=== PATIENT | male | born 1965 | race Caucasian/White ===

== ENCOUNTER 2017-03-21 04:16 | Inpatient (IN) ==
[2017-03-16 13:21] LABS: MANUAL DIFF NEEDED? NO; URINE MICRO REVIEW NEEDED? NO; URINE SOURCE CLEAN CATCH
[2017-03-16 13:25] LABS: BILIRUBIN URINE NEGATIVE (NEGATIVE); BLOOD URINE NEGATIVE (NEGATIVE); COLOR YELLOW; GLUCOSE URINE NEGATIVE (NEGATIVE); LEUKOCYTES URINE NEGATIVE (NEGATIVE); NITRITE URINE NEGATIVE (NEGATIVE); PH URINE 7.5; PROTEIN URINE 70 mg/dL (NEGATIVE); TURBIDITY URINE CLEAR (CLEAR); UR EPITHELIAL CELLS <10 /HPF (<10); URINE BACTERIA NEGATIVE /HPF; URINE RBC <10 /HPF (<10); URINE WBC <10 /HPF (<10); UROBILINOGEN URINE NORMAL (NORMAL)
[2017-03-16 13:26] LABS: BASO% 0.3 % (0.0-0.8); EOS# 0.14 X1000 (0.0-0.7); EOS% 1.5 % (0.0-10.0); HEMATOCRIT 48.6 % (42.0-52.0); HEMOGLOBIN 15.7 g/dL (14.0-18.0); IMM GRAN# 0.02 X1000 (0.0-0.04); IMM GRAN% 0.2 % (0.0-0.5); LYMPH# 2.44 X1000 (1.2-3.4); LYMPH% 26.2 % (20.5-51.1); MCH 24.8 PG (27-31); MCHC 32.3 g/dL (33-37); MCV 76.7 FL (81-99); MONO# 1.05 X1000 (0.11-0.59); MONO% 11.3 % (1.7-9.3); MPV 9.9 FL (7.4-10.4); NEUT% 60.5 % (42.2-75.2); PLT 247 X1000 (130-400); RBC 6.34 XMIL (4.7-6.1)
[2017-03-16 13:34] LABS: INR 0.99; PROTIME 10.4 Seconds (9.2-11.7)
--- NOTE | 2017-03-16 13:56 | EKG Report ---
Test Performed on : 03/16/2017 1:12:29 PM Test Reason : PAT Blood Pressure : / mmHG Vent. Rate : 067 BPM Atrial Rate : 067 BPM P-R Int : 174 ms QRS Dur : 078 ms QT Int : 386 ms P-R-T Axes : 034 -01 051 degrees QTc Int : 407 ms Normal sinus rhythm. Minimal voltage criteria for LVH, may be normal variant Nonspecific T wave abnormality Abnormal ECG When compared with ECG of 01-JAN-2015 09:16, No significant change was found Confirmed by Kentrell LAWRENCE, Manuel Ibrahim ([id number]) on 03/16/2017 9:07:48 PM
[2017-03-16 13:58] LABS: AGAP 10; BUN 14 mg/dL (8-22); CALCIUM 9.4 mg/dL (8.8-10.2); CHLORIDE 97 mmol/L (98-107); COSMO 273; POTASSIUM 4.6 mmol/L (3.5-5.1); SODIUM 137 mmol/L (136-145); TCO2 30 mmol/L (25-35)
[2017-03-21] MEDS ORDERED: ZYLOPRIM PO PRN (06:53)
[2017-03-21] MEDS ORDERED: MORPHINE IV PRN (06:54)
[2017-03-21] MEDS ORDERED: TESTOSTERONE CYPIONATE 100 MG IM SCH (07:00)
[2017-03-21] MEDS ORDERED: COLACE ONE (07:37)
[2017-03-21] MEDS ORDERED: REGLAN ONE (07:37)
[2017-03-21] MEDS ORDERED: PEPCID ONE (07:37)
[2017-03-21] MEDS ORDERED: CELEBREX ONE (07:38)
[2017-03-21] MEDS ORDERED: LYRICA ONE (07:38)
[2017-03-21] MEDS ORDERED: KEFZOL 2 GM/D5W 2 GM/50 ML IVPB ONE (07:38)
[2017-03-21] MEDS ORDERED: LR 1,000 ML ONE ×2 (07:38→12:32)
[2017-03-21] MEDS: COLACE PO SCH ×2 (08:19→21:38)
[2017-03-21] MEDS: CELEBREX PO SCH ×2 (08:19→08:20)
[2017-03-21] MEDS ORDERED: TORADOL ONE (08:21)
[2017-03-21] MEDS ORDERED: CYKLOKAPRON 1,000 MG/NS 1,000 MG/100 ML IVPB ONE ×2 (08:22→08:24)
[2017-03-21] MEDS ORDERED: VANCOMYCIN ONE (08:22)
[2017-03-21] MEDS ORDERED: MARCAINE 0.25% PF/EPI 1:200,000 ONE (08:22)
[2017-03-21] MEDS ORDERED: SODIUM CHLORIDE 0.9% ONE (08:22)
[2017-03-21] MEDS ORDERED: EXPAREL 1.3% ONE (08:23)
[2017-03-21] MEDS ORDERED: NEOSPORIN G.U. IRRIGANT ONE (08:23)
[2017-03-21 10:00] LABS: URINE MICRO REVIEW NEEDED? NO; URINE SOURCE CATH
[2017-03-21 10:06] LABS: UR EPITHELIAL CELLS <10 /HPF (<10); URINE BACTERIA NEGATIVE /HPF; URINE RBC <10 /HPF (<10); URINE WBC <10 /HPF (<10)
[2017-03-21 10:07] LABS: BILIRUBIN URINE NEGATIVE (NEGATIVE); BLOOD URINE NEGATIVE (NEGATIVE); COLOR YELLOW; GLUCOSE URINE NEGATIVE (NEGATIVE); LEUKOCYTES URINE NEGATIVE (NEGATIVE); NITRITE URINE NEGATIVE (NEGATIVE); PH URINE 7.5; PROTEIN URINE 30 mg/dL (NEGATIVE); SP GRAVITY URINE 1.019; TURBIDITY URINE CLEAR (CLEAR); UROBILINOGEN URINE NORMAL (NORMAL)
[2017-03-21] MEDS ORDERED: FENTANYL ONE (12:01)
[2017-03-21] MEDS ORDERED: VERSED ONE (12:02)
[2017-03-21] MEDS ORDERED: DIPRIVAN 1% ONE (12:02)
--- NOTE | 2017-03-21 12:27 | OPERATIVE NOTE ---
PROCEDURE DATE: 03/21/2017 PREOPERATIVE DIAGNOSIS: Unstable right total knee. POSTOPERATIVE DIAGNOSIS: Right total knee with polyethylene failure. OPERATION: Revision of right total knee, both femoral and tibial components. SURGEONS: Dr. Link Bhardwaj MD. REGISTERED ROUTE ASSOCIATE: MARGARITA Eddy. ANESTHESIA: Spinal. COMPLICATION: None. PROCEDURE IN DETAIL: This 52-year-old male presents for revision arthroplasty of the right knee. Risks, benefits, and no guarantees were discussed, and he is willing to proceed. He was taken the operating room and satisfactory anesthesia obtained. The right leg was prepped and draped in usual sterile fashion. A time-out was taken to confirm operative site, procedure, and patient. The leg was wrapped with an Esmarch and tourniquet inflated to 350 mmHg. The previous incision was utilized, and extended proximally and distally. A medial parapatellar incision was made. Upon opening the joint, clear fluid was noted and this was cultured for aerobic and anaerobic cultures, but did not appear to be infected. Gram stain showed no organisms. The joint was irrigated and the polyethylene post from the previous knee replacement was noted be fractured, with a loose piece of polyethylene floating about the knee. With a rongeur and osteotome, the polyethylene was removed from the tibial tray. Osteotome was then used to carefully dissect around the femoral component and the femoral component was extracted. Any remaining cement on the femur was carefully picked off with a rongeur. Afterwards, the tibial tray was removed with similar technique with an osteotome, with care taken to preserve bone and then removal of any retained cement. Using the [employer] Sigma revision system, an intramedullary reamer was used to ream the tibia up to an appropriate size tibial stem, which was 12 mm in diameter. Afterwards, the tibial metaphysis was broached using the revision system with a 45 metaphyseal sleeve. The tibial cut was then re-cut down to fresh bone with a flat cut. Care was taken to preserve collateral ligaments and posterior neurovascular structures. Tibial tray was sized to a size 3 tibial tray. Next, the femur was re-cut at 5 degrees of valgus and sized to a TC3 Sigma size 4 femoral component. The 4-in-1 block was secured and the anterior, posterior, and chamfer cuts sequentially made to fresh bone with 4 mm offset posteriorly. The notch was created for posterior stabilized design. The femur was reamed and broached up to a size 31 femoral sleeve with a 16 mm stem. Trial implants were assembled and placed, and a 12.5 poly revealed good range of motion and stability. Any fibrous tissue was removed about the patella, and the patella component from the previous knee replacement was well cemented, without any wear. This was left in place. Trial implants removed and bony surfaces thoroughly irrigated with pulsatile lavage. A PFC Sigma revision knee was then placed into the knee with the stem prosthesis on both femoral and tibial sides, and excess cement removed with a [place] elevator. After full cure, a 12.5 rotating platform posterior stabilized poly was placed in the tibial tray and the knee reduced. Final range of motion was zero to 120 degrees with midline patellar tracking. The arthrotomy was then copiously irrigated with irrigant. The joint capsule was injected with Exparel and a Hemovac drain placed. The arthrotomy was closed with #1 Vicryl, the subcutaneous with 2-0 Vicryl, and the skin with skin ravinder. Sterile dressings completed the closure, and the patient was recovered from anesthesia and transferred to the recovery room in stable condition. No intraoperative complications were noted. Instrument count and sponge count were correct at the time of closure. cc: Tom Bhardwaj MD
[2017-03-21] MEDS ORDERED: NS 1,000 ML ONE (12:31)
[2017-03-21] MEDS ORDERED: OFIRMEV 1000 MG/ISOTONIC SOLN 1,000 MG/100 ML BOTTLE ONE (12:32)
[2017-03-21] MEDS ORDERED: EPHEDRINE ONE (12:32)
[2017-03-21] MEDS ORDERED: ZOFRAN ONE (12:32)
[2017-03-21] MEDS ORDERED: XYLOCAINE-MPF 2% ONE (12:32)
[2017-03-21] MEDS ORDERED: NEO-SYNEPHRINE ONE (12:32)
[2017-03-21] MEDS ORDERED: SODIUM CHLORIDE 0.9% 20 ML ONE (12:32)
[2017-03-21] MEDS ORDERED: DECADRON ONE (12:32)
[2017-03-21] MEDS: NS 1,000 ML IV SCH (13:00)
[2017-03-21] MEDS: NORCO-10 PO PRN ×3 (13:59→20:27)
--- NOTE | 2017-03-21 14:14 | PROGRESS NOTE ---
DATE: 03/21/2017 Mr. Herrera is seen postop of a total knee revision. Presently, he is afebrile with stable vital signs. He has minimal complaints. The bandage is clean and dry. He is motor and sensory intact over the distal extremity with good capillary refill and good extension and flexion of the toes. We have discussed pain management with him. We will see him tomorrow for postop day 1 care as needed. cc: Tom Bhardwaj MD
--- NOTE | 2017-03-21 15:12 | Diag Imaging Result Doc PS360 ---
EXAM: KNEE 1-2 VIEWS-RIGHT - 03/21/2017 HISTORY: tka TECHNIQUE: Portable right knee two views 1215 COMPARISON: 03/03/2017 FINDINGS: There are postsurgical changes of interval replacement of the right total knee prosthesis. Alignment of the new prosthesis appears satisfactory. The round lucent area which was seen at the lateral proximal tibial the previous exam appears to been at least partially filled with cement. There are no complicating features identified. IMPRESSION: Satisfactory postoperative exam. Electronically signed by Richard Parker 03/21/2017 3:10 PM
[2017-03-21] MEDS: KEFZOL 1 GM/D5W 1 GM/50 ML IVPB IV SCH (16:36)
[2017-03-21] MEDS: THERA M PLUS PO SCH (17:43)
[2017-03-21] MEDS: PRINIVIL PO SCH (17:44)
[2017-03-21] MEDS: COLCRYS PO SCH (17:44)
[2017-03-21] MEDS: SYNTHROID PO SCH (17:44)
[2017-03-21] MEDS: PERIDEX MT SCH (21:38)
[2017-03-22] MEDS: NORCO-10 PO PRN ×3 (01:01→10:39)
[2017-03-22] MEDS: KEFZOL 1 GM/D5W 1 GM/50 ML IVPB IV SCH (01:01)
[2017-03-22] MEDS: NS 1,000 ML IV SCH (01:02)
[2017-03-22] MEDS ORDERED: XARELTO PO SCH (06:00)
[2017-03-22 06:07] LABS: HEMATOCRIT 41.4 % (42.0-52.0); HEMOGLOBIN 13.4 g/dL (14.0-18.0)
[2017-03-22 06:33] LABS: AGAP 10; BUN 15 mg/dL (8-22); CALCIUM 9.1 mg/dL (8.8-10.2); CHLORIDE 100 mmol/L (98-107); COSMO 275; POTASSIUM 5.1 mmol/L (3.5-5.1); SODIUM 136 mmol/L (136-145); TCO2 26 mmol/L (25-35)
[2017-03-22 08:02] VITALS: BP 133/63
[2017-03-22] MEDS ORDERED: PRILOSEC PO SCH (09:00)
--- NOTE | 2017-03-22 09:07 | DISCHARGE SUMMARY ---
ADMISSION DATE: 03/21/2017 DISCHARGE DATE: 03/22/2017 ADMITTING DIAGNOSIS: Loose right total knee replacement. DISCHARGE DIAGNOSIS: Loose right total knee replacement. PROCEDURES: Revision right total knee replacement. ADMITTING HISTORY AND HOSPITAL COURSE: This is a 52-year-old male with a history of a total knee replacement in 2008, presents for surgical revision of knee replacement. He was admitted on March 21 and underwent a total knee revision. At that time he was found to have a polyethylene failure of his previous implant. Cultures revealed no signs of infection. He underwent a revision and was kept overnight for pain management. At the present time, he is afebrile with stable vital signs. His pain is managed. He is discharged home today for outpatient followup. He is neurovascular intact with no signs of infection or DVT. He is to receive home therapy and follow up in roughly 13 days. DISCHARGE MEDICATIONS: Include continuing of his home medicines such as colchicine 0.6 mg daily, [place] 10 mg 1-2 every 4 6 hours p.r.n. pain, Synthroid 50 mcg daily, Prinivil 40 mg daily, multivitamin supplementation, Prilosec 20 mg daily, Xarelto 10 mg daily for 2 weeks, Zyloprim 100 mg p.r.n., and testosterone 100 mg IM as directed. DISCHARGE INSTRUCTIONS: He is to return in the interim for any worsening signs or symptoms. cc: Tom Bhardwaj MD
[2017-03-22] MEDS: THERA M PLUS PO SCH (09:20)
[2017-03-22] MEDS: SYNTHROID PO SCH (09:20)
[2017-03-22] MEDS: COLCRYS PO SCH (09:20)
[2017-03-22] MEDS: COLACE PO SCH (09:20)
[2017-03-22] MEDS: PERIDEX MT SCH (09:20)
[2017-03-22] MEDS: PRINIVIL PO SCH (09:21)
== END 2017-03-22 11:41 | disposition home health service (06) ==
LOC: SURHOLD 04:16 → 4N 10:14
PROVIDERS: ADMIT Orthopaedic Surgery Adult Reconstructive Orthopaedic Surgery; ATTEND Orthopaedic Surgery Adult Reconstructive Orthopaedic Surgery